=== PATIENT | male | born 1985 | race Caucasian/White ===

== ENCOUNTER → 2021-09-27 | Outpatient (CLI) | payer OTHER ==
--- NOTE | 2021-09-28 02:45 | MR ---
EXAMINATION TYPE: MR knee LT wo con DATE OF EXAM: 09/27/2021 COMPARISON: None HISTORY: Left knee pain S/P injiury. There is a moderate knee joint effusion. The posterior cruciate ligament is intact. There is complete disruption of the anterior cruciate ligament. There is increased signal at the knee joint consistent with torn ligament and debris. There is some patchy increased signal in the anterior horn of the lat eral meniscus. The medial meniscus appears intact. There is some patchy 2 cm area of increased signal in the posterior aspect of the medial tibial condyle consistent with a moderate bone bruise. There i s similar change in the lateral tibial condyle posterior aspect. There is some patchy increased signa l in the anterior aspect of the lateral femoral condyle consistent with bone bruise. No fracture line seen. The collateral ligaments appear intact. The joint spaces are fairly normal. IMPRESSION: Complete tear of the anterior cruciate ligament. Mixed signal in the intercondylar notch consistent w ith debris and blood clot in the torn ligament. Moderate knee joint effusion. Bone bruise in the distal femur and proximal tibia as above. No fractur e seen. Small complex tear of the anterior horn of the lateral meniscus.
== END | disposition home or self-care (01) ==
LOC: RADMRIMAIN 19:58
PROVIDERS: ATTEND Orthopaedic Surgery
DX: S83.512A Sprain of anterior cruciate ligament of left knee, initial encounter (principal); S83.282A Other tear of lateral meniscus, current injury, left knee, initial encounter; M25.462 Effusion, left knee; S70.12XA Contusion of left thigh, initial encounter; X58.XXXA Exposure to other specified factors, initial encounter

== ENCOUNTER → 2021-10-25 | Outpatient (CLI) | payer OTHER ==
[2021-10-25 18:38] LABS: Basophils # (A) 0.05 X 10*3/uL (0.00-0.10); Basophils % (A) 0.7 %; Eosinophils # (A) 0.22 X 10*3/uL (0.04-0.35); Eosinophils % (A) 3.2 %; HCT 45.3 % (39.6-50.0); Immature Grans, Automated 0.3 %; Lymphocytes # (A) 1.94 X 10*3/uL (0.90-5.00); Lymphocytes % (A) 28.4 %; MCH 28.5 pg (27.0-32.0); MCHC 33.1 g/dL (32.0-37.0); Mean Platelet Volume 10.1 fL (9.5-12.2); Monocytes # (A) 0.58 X 10*3/uL (0.20-1.00); Monocytes % (A) 8.5 %; NRBC Per 100 WBC 0 /100 WBCS (0.0-0.0); Neutrophils # (A) 4.01 X 10*3/uL (1.80-7.70); Neutrophils % (A) 58.9 %; Platelet Count 303 X 10*3/uL (140-440); RBC 5.27 X 10*6/uL (4.40-5.60); RDW 14.6 % (11.5-14.5); WBC 6.82 X 10*3/uL (4.50-10.00)
[2021-10-25 19:15] LABS: Anion Gap 11.2 mmol/L (10.00-18.00); Carbon Dioxide 25.4 mmol/L (20.0-27.5); Potassium 4.6 mmol/L (3.5-5.5)
== END | disposition home or self-care (01) ==
LOC: LABPAT 12:22
PROVIDERS: ATTEND Orthopaedic Surgery
DX: Z01.812 Encounter for preprocedural laboratory examination (principal); M23.92 Unspecified internal derangement of left knee
CPT/HCPCS: 80051; 85025